=== PATIENT | female | born 1955 | race African-American/Black ===

== ENCOUNTER → 2017-05-15 | Outpatient (CLI) | payer MEDICARE, MEDICAID | END | disposition home or self-care (01) | LOC: US 10:15 | PROVIDERS: ATTEND Family Medicine | DX: N63.10 Unspecified lump in the right breast, unspecified quadrant (principal); N63.20 Unspecified lump in the left breast, unspecified quadrant | CPT/HCPCS: 76642 ==

== ENCOUNTER → 2018-11-18 | Outpatient (CLI) | payer MEDICARE, MEDICAID | END | disposition home or self-care (01) | LOC: US 09:37 | PROVIDERS: ATTEND Family Medicine | DX: R92.8 Other abnormal and inconclusive findings on diagnostic imaging of breast (principal) | CPT/HCPCS: 76642 ==

== ENCOUNTER → 2023-03-08 | Day surgery (SDC) | payer MEDICARE, MEDICAID ==
[~2023-03-08] VITALS: Ht 129.5 cm; Wt 40.8 kg
[~2023-03-08] MED LIST: CALC-586 GT; CHLO473M3 MM; CLOT45CR62 GT; DEXAMETHASONE 4MG/ML 1ML VIAL ONE; DIAZ2TAB3 GT; FAMO20TA8 GT; IBUP-2458 GT; LACTATED RINGERS 1,000 ML IV SCH; LIDOCAINE HCL 1% 20ML VIAL (Pyxis) INJ ONE; ONDANSETRON HCL 4MG/2ML INJ ONE; PHEN64.8 GT; PROPOFOL 200MG/20ML VIAL IV ONE; SERT-112 GT; SIMETHICONE 40 MG/0.6 ML 15ML ONE
[2023-03-08 09:31] LABS: BASOPHILS % 0.8 % (0.0-2.0); EOSINOPHILS % 4.8 % (0.0-5.0); HEMATOCRIT. 46.7 % (36.0-48.0); HEMOGLOBIN. 15.5 g/dL (12.0-16.0); LYMPHOCYTES % 22.6 % (20.0-50.0); MEAN CORPUSCULAR HEMOGLOBIN 29.7 pg (28.0-32.0); MEAN CORPUSCULAR HGB CONC 33.2 g/dL (31.0-37.0); MEAN CORPUSCULAR VOLUME 89.6 fL (81.0-99.0); MEAN PLATELET VOLUME 9.2 fl (7.4-10.4); MONOCYTES % 14.8 % (2.0-8.0); PLATELET 221 x1000/uL (130-400); RED BLOOD CELL COUNT 5.21 mill/uL (4.2-5.4); RED CELL DISTRIBUTION WIDTH 13.1 % (11.6-14.6); WHITE BLOOD COUNT 4.1 x1000/uL (4.5-11.0)
[2023-03-08 09:36] LABS: CHLORIDE 103 mEq/L (98-107); INDEX HEMOLYSI 1 (1-3); INDEX ICTERIC 1 (1-4); INDEX LIPEMIC 1 (1-3); POTASSIUM 4.5 mEq/L (3.5-5.1); SODIUM 137 mEq/L (136-145)
[2023-03-08 09:37] LABS: CARBON DIOXIDE 27 mEq/L (21-32); UREA NITROGEN BLOOD 17 mg/dL (7-21)
[2023-03-08 09:41] LABS: CREATININE 0.4 mg/dL (0.6-1.3); GLUCOSE 90 mg/dL (70-105)
== END | disposition home or self-care (01) ==
LOC: OR 07:20
PROVIDERS: ATTEND Internal Medicine Gastroenterology
DX: R13.12 Dysphagia, oropharyngeal phase (principal); E46 Unspecified protein-calorie malnutrition; K94.23 Gastrostomy malfunction; K29.70 Gastritis, unspecified, without bleeding; R62.50 Unspecified lack of expected normal physiological development in childhood; H54.7 Unspecified visual loss; M41.9 Scoliosis, unspecified; R56.9 Unspecified convulsions; Z79.899 Other long term (current) drug therapy; Z98.890 Other specified postprocedural states
CPT/HCPCS: 80048; 85025; 36415; 43246; J1100; J3490; J2405; J2704; Z7610 ×8; C1893